=== PATIENT | male | born 1945 | race Caucasian/White ===

== ENCOUNTER → 2022-08-17 | Outpatient (CLI) | payer MEDICARE ==
[2022-08-17 17:12] LABS: BASO # 0.1 10^3/uL (0.0-0.2); BASO % 0.6 % (0.0-1.0); EOS # 0.4 10^3/uL (0.0-0.5); EOS % 4.4 % (0.0-3.0); HEMOGLOBIN 13.9 g/dl (13.5-17.5); LYMPH # 2.7 10^3/uL (1.5-5.0); LYMPH % 33.5 % (24.0-44.0); MEAN CORPUSCULAR HEMOGLOBIN 29.5 pg (27.0-33.0); MEAN CORPUSCULAR HGB CONC 33.1 g/dl (32.0-36.5); MEAN CORPUSCULAR VOLUME 89.2 fl (80.0-96.0); MONO # 0.7 10^3/uL (0.0-0.8); NEUTROPHILS # 4.3 10^3/uL (1.5-8.5); NEUTROPHILS % 52.4 % (36.0-66.0); PLATELET COUNT, AUTOMATED 286 10^3/uL (150-450); RED BLOOD COUNT 4.71 10^6/uL (4.30-6.10); WHITE BLOOD COUNT 8.1 10^3/uL (4.0-10.0)
[2022-08-17 17:44] LABS: ALBUMIN 3.7 G/DL (3.2-5.2); ALKALINE PHOSPHATASE 36 U/L (46-116); ALT/SGPT 18 U/L (7.0-40); AST/SGOT 20 U/L (<34); BILIRUBIN,TOTAL 0.6 MG/DL (0.3-1.2); BLOOD UREA NITROGEN 12 MG/DL (9-23); CALCIUM LEVEL 8.4 MG/DL (8.3-10.6); CARBON DIOXIDE LEVEL 25 MMOL/L (20-31); CHLORIDE LEVEL 106 MMOL/L (98-107); CREATININE FOR GFR 0.89 MG/DL (0.70-1.30); GLOMERULAR FILTRATION RATE > 60.0 (>42); GLUCOSE, FASTING 118 MG/DL (74-106); POTASSIUM SERUM 4.1 MMOL/L (3.5-5.1); SODIUM LEVEL 138 MMOL/L (136-145); TOTAL PROTEIN 6.4 G/DL (5.7-8.2)
[2022-08-17 18:03] LABS: HEMOGLOBIN A1c 5.9 % (4.0-6.0)
[2022-08-17 18:41] LABS: CREATININE, URINE 314.3 MG/DL; MAU/CREAT RATIO 2.8 MCG/MG (0.0-30.0)
== END ==
LOC: M WUC 11:24
PROVIDERS: ATTEND Nurse Practitioner Family
DX: E11.69 Type 2 diabetes mellitus with other specified complication (principal); I10 Essential (primary) hypertension

== ENCOUNTER 2023-03-07 16:48 | Emergency (ER) | payer MEDICARE ==
[~2023-03-07] VITALS: Ht 177.8 cm; Wt 93.7 kg
[2023-03-07] MEDS ORDERED: METF500T13 PO (17:13)
[2023-03-07] MEDS ORDERED: SIMV20TA22 PO (17:13)
[2023-03-07] MEDS ORDERED: LISI10TA22 PO (17:13)
[2023-03-07] MEDS ORDERED: THERTAB52 PO (17:13)
[2023-03-07] MEDS ORDERED: ASPI81CH33 PO (17:13)
[2023-03-07] MEDS ORDERED: FLOM0.4C39 PO (17:13)
[2023-03-07] MEDS ORDERED: CVS1CAP2 PO (17:13)
[2023-03-07] MEDS ORDERED: OMEG350C PO (17:13)
[2023-03-07] MEDS ORDERED: AMLO25TA PO (17:13)
[2023-03-07 20:19] LABS: BASO % 0.2 % (0.0-1.0); EOS % 0.4 % (0.0-3.0); HEMATOCRIT 41.1 % (42.0-52.0); HEMOGLOBIN 13.9 g/dl (13.5-17.5); MEAN CORPUSCULAR HEMOGLOBIN 29.2 pg (27.0-33.0); MEAN CORPUSCULAR HGB CONC 33.8 g/dl (32.0-36.5); MEAN CORPUSCULAR VOLUME 86.3 fl (80.0-96.0); MONO # 0.3 10^3/uL (0.0-0.8); MONO % 6.1 % (2.0-8.0); NEUTROPHILS % 74.9 % (36.0-66.0); PLATELET COUNT, AUTOMATED 178 10^3/uL (150-450); RED BLOOD COUNT 4.76 10^6/uL (4.30-6.10); WHITE BLOOD COUNT 5.3 10^3/uL (4.0-10.0)
[2023-03-07 20:30] LABS: INR 1.03; PROTHROMBIN TIME 13.2 SECONDS (12.5-14.5)
[2023-03-07 20:54] LABS: BLOOD UREA NITROGEN 27 MG/DL (9-23); CALCIUM LEVEL 8.6 MG/DL (8.3-10.6); CARBON DIOXIDE LEVEL 24 MMOL/L (20-31); CHLORIDE LEVEL 104 MMOL/L (98-107); CREATININE FOR GFR 1.09 MG/DL (0.70-1.30); GLOMERULAR FILTRATION RATE > 60.0 (>42); GLUCOSE, FASTING 107 MG/DL (74-106); SODIUM LEVEL 137 MMOL/L (136-145)
[2023-03-07] MEDS ORDERED: ISOVUE-370 76% 100ML VIAL As Ordered ONE (21:02)
[2023-03-07 22:03] VITALS: BP 122/70; TEMP 97.8; O2SAT 95
== END 2023-03-07 23:55 | disposition home or self-care (01) ==
LOC: M ED 16:48
DX: S30.0XXA Contusion of lower back and pelvis, initial encounter (principal); W22.8XXA Striking against or struck by other objects, initial encounter; Y92.89 Other specified places as the place of occurrence of the external cause; Y93.89 Activity, other specified; Y99.8 Other external cause status; R93.89 Abnormal findings on diagnostic imaging of other specified body structures; I10 Essential (primary) hypertension; Z88.0 Allergy status to penicillin; Z79.899 Other long term (current) drug therapy; Z79.84 Long term (current) use of oral hypoglycemic drugs; Z79.82 Long term (current) use of aspirin
CPT/HCPCS: 36415; 70450; 72131; 74177; 80048; 81001; 85025; 85610; 85730; 99284; Q9967

== ENCOUNTER → 2024-04-24 | Outpatient (CLI) | payer MEDICARE ==
[~2024-04-24] MED LIST: AMLO25TA PO; ASPI81CH33 PO; CVS1CAP2 PO; FLOM0.4C39 PO; LISI10TA22 PO; METF500T13 PO; OMEG350C PO; SIMV20TA22 PO; THERTAB52 PO
[2024-04-24 19:17] LABS: BLOOD UREA NITROGEN 14 MG/DL (9-23); CREATININE FOR GFR 0.97 MG/DL (0.70-1.30); GLOMERULAR FILTRATION RATE > 60.0 (>35)
== END ==
LOC: M WUC 10:02
PROVIDERS: ATTEND Registered Nurse
DX: Z01.812 Encounter for preprocedural laboratory examination (principal)